=== PATIENT | female | born 1985 | race Caucasian/White ===

== ENCOUNTER 2022-11-24 01:25 | Emergency (ER) | payer MEDICAID, SELFPAY ==
--- NOTE | ~2022-11-24 | CT_ITS ---
EXAMINATION: CT brain wo con DATE: 11/24/2022 03:17 INDICATION: Syncope. TECHNIQUE: Computed tomography (CT) of the head was performed without intravenous contrast. The mA wa s adjusted according to patient size. Iterative reconstruction technique was employed. The dose-lengt h product was 605.33 mGy-cm. COMPARISON: None FINDINGS: There is no intracranial hemorrhage, acute infarction, or abnormal intracranial mass lesion . The ventricles are normal in size. There is mild mucosal thickening in the paranasal sinuses. The m astoid air cells are normal. IMPRESSION: 1. Normal brain. Reviewed, dictated and finalized at location A. IMPRESSION: 1. Normal brain.
--- NOTE | ~2022-11-24 | CT_ITS ---
EXAMINATION: CT cervical spine wo con DATE: 11/24/2022 03:17 INDICATION: Syncope. Fall. TECHNIQUE: Computed tomography (CT) of the cervical spine was performed without intravenous contrast. Automated exposure control and iterative reconstruction technique were employed. The dose-length pro duct was 169.25 mGy-cm. COMPARISON: None FINDINGS: There is 10 degrees levoscoliosis of cervical spine. There is kyphosis of cervical spine. V ertebral body heights are normal. There is mildly decreased disc height at C4-C5 and C5-C6. The follo wing disc levels are specifically discussed: C2-C3: There is no uncovertebral joint osteoarthritis. There is mild bilateral facet joint osteoarthr itis. There is no neural foraminal stenosis. There is no central canal stenosis. C3-C4: There is mild bilateral uncovertebral joint osteoarthritis. There is mild right facet joint os teoarthritis. There is no neural foraminal stenosis. There is no central canal stenosis. C4-C5: There is mild bilateral uncovertebral joint osteoarthritis. There is no facet joint osteoarthr itis. There is no neural foraminal stenosis. There is no central canal stenosis. C5-C6: There is severe right and mild left uncovertebral joint osteoarthritis. There is mild bilatera l facet joint osteoarthritis. There is mild right neural foraminal stenosis. There is mild central ca nal stenosis. C6-C7: There is no uncovertebral joint osteoarthritis. There is mild right facet joint osteoarthritis . There is no neural foraminal stenosis. There is mild central canal stenosis. C7-T1: There is no uncovertebral joint osteoarthritis. There is mild bilateral facet joint osteoarthr itis. There is no neural foraminal stenosis. There is no central canal stenosis. IMPRESSION: 1. No fracture. 2. Mild cervical spondylosis. 3. Cervical levoscoliosis. Reviewed, dictated and finalized at location A.
[2022-11-24 01:26] VITALS: BP 124/78; PULSE 78; RESP 15; TEMP 36.7; O2SAT 100
--- NOTE | 2022-11-24 02:37 | ECG_ITS ---
Measurements Intervals [place] Rate: 84 P: 51 VA: 149 QRS: 44 QRSD: 90 T: 59 QT: 385 QTc: 455 Interpretive Statements SINUS RHYTHM POSSIBLE RIGHT VENTRICULAR CONDUCTION DELAY [RSR (QR) IN V1/V2] NO PREVIOUS ECG AVAILABLE FOR COMPARISON Electronically Signed On 11-24-2022 14:38:34 CDT by Mirta Ortiz M.D.
[2022-11-24] MEDS: ACETAMINOPHEN 500 MG TABLET 1000 MG PO (02:52)
[2022-11-24 02:53] LABS: Glucose Point of Care 94 mg/dl (65-105)
--- NOTE | 2022-11-24 04:07 | ED.GENADULT ---
HPI - General Adult General Chief complaint: Syncope Stated complaint: LIGHTHEADED/DIZZY Time Seen by Provider: 11/24/22 02:11 History of Present Illness HPI narrative: This is a 36-year-old homeless schizophrenic presenting ED after a syncopal event. Patient says she was out with a friend at [facility] when she got lightheaded and believes she lost consciousness. She then fell to the ground She does not remember the event clearly. patient does the back of her head hurts. No other complaints. Denies use blood thinners. Denies use of drugs or alcohol. She is not suicidal or homicidal. Related Data Allergies Allergy/AdvReac Type Severity Reaction Status Date / Time morphine Allergy Hives Verified 11/24/22 01:31 risperidone Allergy Other Verified 11/24/22 01:31 [facility] Past Medical History Medical History Schizophrenia Exam Narrative: APPEARANCE: No apparent distress. Head: no evidence of trauma to the back of the patient's head EYES: EOMI, NOSE: Atraumatic NECK: Trachea midline , patient reports midline tenderness RESPIRATORY: No increased rate of breathing Clear to auscultation CARDIOVASCULAR: RRR, no peripheral edema ABDOMINAL: Non-distended, soft no guarding rebound MUSCULOSKELETAl: No obvious deformities NEURO: Alert. Cranial nerves 2-12 grossly intact. Sensation light touch, motor function cerebellar function intact for 4 extremities. Gait exam was normal. No tremor SKIN:: Warm, dry. Normal color PSYCHIATRIC: flat affect Course Vital Signs Vital signs: Vital Signs Temperature 98.1 F 11/24/22 01:26 Pulse Rate 78 11/24/22 01:26 Respiratory Rate 11/24/22 01:26 Blood Pressure 124/78 11/24/22 01:26 Pulse Oximetry 100 11/24/22 01:26 Oxygen Delivery Room Air 11/24/22 01:26 Temperature 98.1 F 11/24/22 01:26 Pulse Rate 78 11/24/22 01:26 Respiratory Rate 15 11/24/22 01:26 Blood Pressure 124/78 11/24/22 01:26 Pulse Oximetry 100 11/24/22 01:26 Oxygen Delivery Room Air 11/24/22 01:26 Medical Decision Making MDM Narrative Medical decision making narrative: -Presentation: 36-year-old homeless schizophrenic presenting after syncopizing at a [facility]. This time the patient is asymptomatic. No evidence of trauma. neuro exam normal. EKG, CT head and C-spine will be obtained. -DDX includes but is not limited to: Vasovagal syncope, cardiac syncope, psychogenic syncope, concussion, head trauma -Co-morbidities complicating care: Schizophrenia -Social determinants of health: homeless unemployed -Hx from independent Sources: EMS -Independent interpretation of studies: CT head and C-spine negative for acute injury. Point of care glucose 94. Independent EKG interpretation: Rhythm [sinus], Rate [84], [place] -[normal], [place] -[normal], QRS [narrow], QTC [normal], T waves -[negative for concerning inversions], ST Segments - [Negative for concerning elevations] Final interpretations: [Normal Sinus Rhythm] interventions: Tylenol 1000mg -Shared decision making / Disposition: Trauma workup negative. Patient had syncope with prodrome is likely benign. No concerning findings on EKG. Patient will be discharged. Vital Signs Vital Signs: Vital Signs Temperature 98.1 F 11/24/22 01:26 Pulse Rate 78 11/24/22 01:26 Respiratory Rate 15 11/24/22 01:26 Blood Pressure 124/78 11/24/22 01:26 Pulse Oximetry 100 11/24/22 01:26 Oxygen Delivery Room Air 11/24/22 01:26 Temperature 98.1 F 11/24/22 01:26 Pulse Rate 78 11/24/22 01:26 Respiratory Rate 15 11/24/22 01:26 Blood Pressure 124/78 11/24/22 01:26 Pulse Oximetry 100 11/24/22 01:26 Oxygen Delivery Room Air 11/24/22 01:26 Lab Data Labs: Lab Results 11/24/22 Range/Units 02:51 POC Capillary Glucose 94 (65-105) mg/dl Discharge Plan Discharge Clinical Impression: Schizophrenia, Vasovagal sync
[2022-11-24 04:11] VITALS: BP 128/64; PULSE 84; RESP 16; O2SAT 100
[2022-11-24 04:38] VITALS: BP 102/64; PULSE 84; RESP 15; O2SAT 100
== END 2022-11-24 04:39 | disposition home or self-care (01) ==
PROVIDERS: Emergency Provider Emergency Medicine
DX: R55 Syncope and collapse (principal); F20.9 Schizophrenia, unspecified; Z59.00 Homelessness unspecified; R94.31 Abnormal electrocardiogram [ECG] [EKG]; M47.812 Spondylosis without myelopathy or radiculopathy, cervical region
CPT/HCPCS: 70450; 72125; 82948; 93005; 99284; A9270

== ENCOUNTER 2022-12-14 02:08 | Emergency (ER) | payer MEDICAID, SELFPAY ==
[2022-12-14] VITALS (63 sets, daily range): BP systolic 92–128; BP diastolic 52–102; PULSE 94–129; RESP 16–33; TEMP 34.9–36.8; O2SAT 78–100
--- NOTE | ~2022-12-14 | CT_ITS ---
EXAMINATION: CT brain wo con INDICATION: Altered mental status, seizure COMPARISON: 11/24/2022 TECHNIQUE: Standard unenhanced head CT. The dose-length product (DLP) was 605.33 mGy-cm. The mA was a djusted according to patient size. Iterative reconstruction technique was employed. FINDINGS: No intracranial hemorrhage, acute infarction, or abnormal mass lesion. The ventricles are n ormal. No abnormal mass effect or midline shift. The coats-white matter differentiation is normal. The basal cisterns are patent. The orbits are normal. The paranasal sinuses, mastoids and calvarium are normal. IMPRESSION: 1. No acute intracranial abnormality. Reviewed, dictated and finalized at location A.
--- NOTE | ~2022-12-14 | XR_ITS ---
EXAMINATION: XR chest ET placement INDICATION: Respiratory failure TECHNIQUE: Portable AP chest at 0250 hours COMPARISON: None available FINDINGS: The endotracheal tube ends approximately 4.3 cm above the damaris. The lungs are free of acu te opacities. No pleural effusion or pneumothorax. The cardiomediastinal silhouette is normal. IMPRESSION: 1. No acute cardiopulmonary abnormality. 2. Endotracheal tube approximately 4.3 cm above the damaris. Reviewed, dictated and finalized at location A.
--- NOTE | ~2022-12-14 | XR_ITS ---
EXAMINATION: [id number] INDICATION: OG tube placement TECHNIQUE: Portable AP abdomen at 0330 hours COMPARISON: None available FINDINGS: The OG tube in the stomach. The stomach is mildly distended. A moderate volume of colonic s tool is present. IMPRESSION: 1. OG tube in the stomach. Reviewed, dictated and finalized at location A. IMPRESSION: 1. OG tube in the stomach.
[2022-12-14 02:23] LABS: Glucose Point of Care 153 mg/dl (65-105)
--- NOTE | 2022-12-14 02:38 | ECG_ITS ---
Measurements Intervals [place] Rate: 121 P: 80 AL: 152 QRS: 38 QRSD: 98 T: 52 QT: 363 QTc: 516 Interpretive Statements SINUS TACHYCARDIA ABNORMAL ECG COMPARED TO ECG 11/24/2022 02:48:31 SINUS TACHYCARDIA NOW PRESENT Electronically Signed On 12-14-2022 8:14:49 CDT by Raimundo Palomares D.O.
[2022-12-14] MEDS: PROPOFOL IV EMULSION 100 ML 11.91 MG IV CONT (02:39)
--- NOTE | 2022-12-14 02:48 | PC.NURSE ---
0229: 2 mg Narcan 0230: 4g Zofran 0231: O2 decreased to 2L 0232: GCS of 4 0233: 20mg Etomidate 0233: 100mg Rocuronium 0234: Intubated with 7.5. 23 @ teeth. Chest rise and fall noted. Bilateral lung sounds heard. CO2 detector had positive color change.
--- NOTE | 2022-12-14 03:50 | PC.NURSE ---
Spoke with Amita from poison control. Suggests CK order, mag, and to repeat lithium levels in 4-6 hours. Details of ekg discussed as well. . Amita will fax pertinent information to us.
--- NOTE | 2022-12-14 03:52 | PC.NURSE ---
RT advanced ET tube two CM VORB ERP Zych
[2022-12-14 04:04] LABS: Alveolar/Arterial O2 Gradient 38.3 mmHg; Base Excess ABG -1.5 mEq/l (+/-2.0); Carboxyhemoglobin 0.8 % THb (0-2.0); Device VENTILATOR; Fractional Inspired Oxygen 28 %; HCO3 ABG 23.3 mEq/l (22.0-26.0); Methemoglobin ABG 0.4 %THb (0-1.5); Modified Allen's Test Pass; Oxygen Content ABG 16.7 %vol (16.0-22.0); Oxygen Saturation ABG 98.2 % (95.0-100.0); Oxyhemoglobin 96.3 % THb (90.0-100.0); PCO2 ABG 39.6 mmHg (35.0-45.0); PO2 ABG 114.6 mmHg (80.0-100.0); PO2 FiO2 Ratio Arterial Blood 4.09 %; Reduced Hemoglobin 2.5 %THb (0-5.0); Site Drawn RIGHT RADIAL; Total Hemoglobin 12.2 g/dL (12.0-18.0); pH ABG 7.388 (7.350-7.450)
[2022-12-14] MEDS: SODIUM CHLORIDE 0.9% IV 3,000 ML 999 ML IV CONT (04:04)
[2022-12-14 04:05] LABS: Arterial Blood Gas PEEP 5 cmH2O; Arterial Blood Gas Tidal Volume 380 ml; Arterial Blood Gas Vent Mode CMV; Arterial Blood Gas Ventilator rate 18 /MIN
[2022-12-14 04:16] LABS: Barbiturate Screen Urine Negative (Negative); Benzodiazepines Screen Urine Positive (Negative)
[2022-12-14 04:17] LABS: Cannabinoid Screen Urine Negative (Negative); Cocaine Screen Urine Negative (Negative); Methadone Screen Urine Negative (Negative); Opiate Screen Urine Negative (Negative); Phencyclidine Screen Urine Negative (Negative)
[2022-12-14 04:30] LABS: Appearance Urine Clear (Clear); Bilirubin Urine Negative (Negative); Blood Urine Trace-lysed (Negative); Color Urine Yellow (Yellow); Glucose Urine UA Negative (Negative); Ketones Urine Negative (Negative); Leukocyte Esterase Ur Negative LEU/UL (Negative); Nitrate Urine Negative (Negative); Protein Urine 1+ mg/dL (Negative); Specific Grav Ur >= 1.030 (1.001-1.035); Urobilinogen Urine 0.2 mg/dL (<2.0)
[2022-12-14 04:33] LABS: Add Urine Microscopic? YES
[2022-12-14 04:34] LABS: WBC Urine 0-5 /hpf (0-3)
[2022-12-14 04:42] LABS: Basophils Percent Auto 0.1 % (0.2-1.2); Hematocrit 33.6 % (37.0-47.0); Hemoglobin 10.7 g/dL (12.0-15.0); Immature Granulocyte Absolute 0.04 K/mm3 (0.00-0.031); Immature Granulocyte Percent A 0.4 % (0-0.5); Lymphocytes Absolute Auto 0.29 K/mm3 (0.9-3.2); Lymphocytes Percent Auto 2.8 % (18.3-44.2); Mean Corpuscular HGB Conc 31.8 g/dl (32-36); Mean Corpuscular Hemoglobin 30.2 pg (26-34); Mean Corpuscular Volume 94.9 fl (80-100); Mean Platelet Volume 11.1 fl (7.4-10.4); Monocytes Absolute Auto 0.5 K/mm3 (0.1-0.6); Monocytes Percent Auto 4.4 % (2.6-8.5); Neutrophils Absolute Auto 9.6 K/mm3 (1.3-6.7); Neutrophils Percent Auto 92.3 % (45.5-73.1); Platelet Count Result 264 k/mm3 (150-375); Red Blood Count 3.54 M/mm3 (4.2-5.4); Red Cell Distribution Width 15.5 % (11.5-14.5); White Blood Count 10.3 K/mm3 (4.5-10.0)
[2022-12-14 04:52] LABS: Lactic Acid Reflex 1.2 mmol/L (0.7-2.0)
[2022-12-14 04:53] LABS: Acetaminophen < 10 ug/mL (10-30); Alanine Aminotransferase 23 U/L (6-35); Albumin Level 4.4 g/dL (3.5-5.1); Alkaline Phosphatase 68 U/L (38-126); Anion Gap 11 mmol/L (8-16); Aspartate Amino Transferase 31 U/L (14-36); Bilirubin,Total 0.7 mg/dL (0.2-1.3); Blood Urea Nitrogen 10 mg/dL (7-17); Calcium 8.9 mg/dL (8.4-10.2); Carbon Dioxide 23 mmol/L (22-30); Chloride 106 mmol/L (98-107); Creatine Kinase 305 U/L (30-135); Estimated CRCL calculation 73 ml/min; Estimated Glomerular Filt Rate > 60; Ethanol < 10 mg/dL (<10); Glucose 129 mg/dL (65-110); Lipase 91 U/L (23-300); Magnesium 2.1 mg/dL (1.6-2.3); Phosphorus 2.3 mg/dL (2.5-4.5); Potassium 3.5 mmol/L (3.4-5.0); Salicylate < 1.0 mg/dL (2-20); Sodium 140 mmol/L (137-145); Triglycerides 84 mg/dL (<150)
[2022-12-14 04:54] LABS: Lithium 0.9 mmol/L (0.6-1.2)
--- NOTE | 2022-12-14 04:55 | PC.NURSE ---
temp sensing gallego reading 94.4, brian sanford placed on pt at this time. IV fluids running placed on fluid warmer at this time.
[2022-12-14 05:04] LABS: Amphetamine Screen Urine Positive (Negative)
[2022-12-14 05:05] LABS: NT Pro B Type Natriuretic Pept 57 pg/mL (19.9-100); Troponin I < 0.012 ng/mL (0.000-0.034)
[2022-12-14 05:18] LABS: Influenza A QL RT-PCR Negative (Negative); Influenza B QL RT-PCR Negative (Negative); RSV RNA, RT-PCR Negative (Negative); SARS-CoV-2 RNA PCR Negative (Negative)
--- NOTE | 2022-12-14 05:26 | ED.GENADULT ---
HPI - General Adult General Chief complaint: Overdose Stated complaint: seizure History of Present Illness HPI narrative: This is a 36-year-old female with history of schizophrenia presenting unresponsive. EMS was called to a house where noone knew the patient. When they arrived she was actively seizing. She is given 4 mg of intranasal Versed which abated her seizure. She was then brought to the hospital for evaluation. Patient had a GCS 6 E1V1M4. patient was not protecting her airway, apneic w/ 02 desats. She was found with empty bottles of venlafaxine and lithium next to her. Related Data Allergies Allergy/AdvReac Type Severity Reaction Status Date / Time morphine Allergy Hives Verified 11/24/22 01:31 risperidone Allergy Other Verified 11/24/22 01:31 [facility] Past Medical History Medical History Schizophrenia Exam Narrative: APPEARANCE: GCS 6 E1 V1 M4, nonresponsive, no evidence of trauma Head: atraumatic. random tongue darting movements EYES: 4 mm, reactive, spontaneous nystagmus NOSE: Atraumatic NECK: Trachea midline RESPIRATORY: apneic spells, desaturations, clear lungs CARDIOVASCULAR: oral edema ABDOMINAL: no guarding rebound MUSCULOSKELETAl: No obvious deformities NEURO: moving for 4 extremities with twitching motion spontaneously, response to pain SKIN:: Warm, dry. Normal color PSYCHIATRIC: unresponsive Course Vital Signs Vital signs: Vital Signs Temperature 98.3 F 12/14/22 02:10 Pulse Rate 129 H 12/14/22 02:10 Respiratory Rate 32 H 12/14/22 02:10 Blood Pressure 124/90 12/14/22 02:10 Pulse Oximetry 78 L 12/14/22 02:10 Oxygen Delivery Room Air 12/14/22 02:10 Temperature 97.6 F 12/14/22 10:46 Pulse Rate 94 12/14/22 10:46 Respiratory Rate 18 12/14/22 10:46 Blood Pressure 113/54 L 12/14/22 10:46 Pulse Oximetry 100 12/14/22 10:46 Oxygen Delivery Mechanical Ventilation 12/14/22 08:45 Fraction of Inspired Oxygen 28 12/14/22 08:45 Procedures Intubation Intubation #1: Intubation Date: 12/17/22 Time out performed: Yes sedative: Etomidate Mg Given: 20 paralytic: Rocuronium Mg Given: 100 Laryngoscope: Rod Tube Size (cm): 7.5 Method of Intubation: orotracheal Number of Attempts: 1 Tube Placement Confirmation: visualized tube passing through cords, equal breath sounds bilaterally, no breath sounds over epigastrium and confirmation by capnometry Patient Tolerated Procedure: well Intubation Complications: none Medical Decision Making MDM Narrative Medical decision making narrative: -Course: 36-year-old schizophrenic found in house associated with drug use actively seizing. When patient arrived here she was having twitching motions of all extremities but was not protecting her airway and was desaturating. Patient was given Narcan with no response. The patient was intubated. Found to be hypothermic and placed under a Emperatriz Hugger. broad workup ordered. Poison Control was contacted. Patient's workup was largely unremarkable. We have started to titrate down her propofol but she is completely unresponsive. Discussed the case with our fabrication welder who not believes our hospital has the facilities appropriate to manage the patient. Patient will be transferred to [facility] for further management. -DDX includes but is not limited to: status epilepticus, drug overdose, SNRI overdose, lithium overdose, anoxic brain injury, -Co-morbidities complicating care: schizophrenia, substance use disorder -Social determinants of health: schizophrenic, homeless -External Chart Review: review of previous ER visit for syncope -Hx from independent Sources: EMS -Independent interpretation of studies: ABG 7.3/39.6/114/23 CBC and metabolic panel unremarkable. CPK 300. Troponin undetectable. urine negative. Urine katherine
--- NOTE | 2022-12-14 05:39 | PC.NURSE ---
Per verbal order read back from Dr. Crooks Propofol titrated to 20mcg/kg/min due to pt condition.
--- NOTE | 2022-12-14 05:51 | PC.NURSE ---
Addendum entered by Roxana Jang 12/14/22 06:01: Cancelled patient from [facility] waitlist. Patient accepted to [facility] Bobby Note: Patient accepted to [facility] (ICU). ON WAITLIST FOR BED...NO ETA TO WHEN BED WILL BE ASSIGNED.
--- NOTE | 2022-12-14 06:01 | PC.NURSE ---
Patient accepted to [facility]. ICU bed available.
[2022-12-14] MEDS: SODIUM CHLORIDE 0.9% IV 1,000 ML 999 ML IV CONT (06:27)
--- NOTE | 2022-12-14 06:28 | PC.NURSE ---
GERBER by , hospitalist to give 100mcg fentanyl for additional sedation. ERP in other room stabilizing another patient, so hospitalist to assist.
[2022-12-14] MEDS: fentaNYL CITRATE INJ (*CRX) 100 MCG/2 ML VIAL IV PUSH (06:32)
[2022-12-14] MEDS: LORazepam INJ (*CRX) 2 MG/ML VIAL IV PUSH ×3 (06:44→10:42)
[2022-12-14] MEDS: LORazepam INJ (*CRX) 2 MG/ML VIAL (07:26)
--- NOTE | 2022-12-14 07:50 | PC.NURSE ---
0715- assumed care of pt. Pt remains sedated with twitching & bucking vent. Dr. Crooks informed.ET tube 25 at pt lip. Resp reg & unlabored. Mcqueen intact. Vent settings unchanged.
[2022-12-14 08:15] LABS: Troponin I < 0.012 ng/mL (0.000-0.034)
--- NOTE | 2022-12-14 10:44 | PC.NURSE ---
Assessment unchanged.Remains on Vent without change in settings. Propafol infusing. Ativan 2mg for transport. EMS here to transport to [facility]. Matt with Poison Control called for pt update.
== END 2022-12-14 10:51 | disposition short-term general hospital (02) ==
LOC: ANHED 02:25
PROVIDERS: Emergency Provider Emergency Medicine
DX: T50.901A Poisoning by unspecified drugs, medicaments and biological substances, accidental (unintentional), initial encounter (principal); R41.82 Altered mental status, unspecified; R56.9 Unspecified convulsions; Z20.822 Contact with and (suspected) exposure to COVID-19; F20.9 Schizophrenia, unspecified
CPT/HCPCS: 31500; 36415; 36600; 51702; 70450; 80053; 80178; 80307; 81001; 81025; 82375; 82550; 82805; 82948; 83050; 83605; 83690; 83735; 83880; 84100; 84439; 84443; 84478; 84484; 85025; 87040; 87637; 93005; 96365; 96366; 96375; 96376; 99285; J1953; J2060; J2310; J2704; J3010; J7030